=== PATIENT | female | born 1975 | race Caucasian/White ===

== ENCOUNTER → 2019-06-22 09:33 | Outpatient (BNVA) | payer BC, SELFPAY | PROVIDERS: Family Provider Registered Nurse; Visit Provider Otolaryngology | DX: H92.03 Otalgia, bilateral (principal); H91.93 Unspecified hearing loss, bilateral; J34.2 Deviated nasal septum; R26.89 Other abnormalities of gait and mobility; R42 Dizziness and giddiness | CPT/HCPCS: 99203; 99214 ==

== ENCOUNTER 2019-07-10 09:02 | Outpatient (CLI) | payer BC, SELFPAY ==
--- NOTE | 2019-07-10 09:09 | MM_ITS ---
WS: [id number] SCREENING DIGITAL MAMMOGRAM WITH CAD HISTORY: SCREENING COMPARISON: 12/02/2015, 05/23/2015 and 09/02/2014 Bilateral CC and MLO views submitted. Computer aided detection analyzed. Breast composition: There are scattered areas of fibroglandular density. There is a new asymmetry see n in the central LEFT breast on the CC projection only. At a middle depth is some very mild distortio n. Otherwise no interval change in the scattered asymmetries. LEFT breast: Spot compression views (CC ). True ML. Ultrasound to follow if abnormality persists. MM/[id number] IMPRESSION: BI-RADS: 0-Incomplete: Need additional imaging evaluation FOLLOW UP: Need Additional Imaging
== END 2019-07-10 09:03 | disposition home or self-care (01) ==
LOC: RADSHAW 09:06
PROVIDERS: Family Provider Registered Nurse; PCP Registered Nurse; Visit Provider Registered Nurse
DX: Z12.31 Encounter for screening mammogram for malignant neoplasm of breast (principal)
CPT/HCPCS: 77067

== ENCOUNTER → 2020-02-21 10:58 | Outpatient (BNVA) | payer BC, SELFPAY | PROVIDERS: Family Provider Registered Nurse; PCP Registered Nurse; Visit Provider Nurse Practitioner Family | DX: Z11.59 Encounter for screening for other viral diseases (principal) | CPT/HCPCS: 87635 ==

== ENCOUNTER → 2020-04-26 12:54 | Outpatient (BNVA) | payer BC, SELFPAY | PROVIDERS: Family Provider Registered Nurse; PCP Registered Nurse; Visit Provider Specialist | DX: R56.9 Unspecified convulsions (principal); R47.02 Dysphasia; R53.83 Other fatigue; Z87.891 Personal history of nicotine dependence | CPT/HCPCS: 95816 ==

== ENCOUNTER 2021-05-31 13:31 | Outpatient (CLI) | payer MEDICARE, MEDICAID, SELFPAY ==
--- NOTE | 2021-05-31 13:43 | MM_ITS ---
WS: [id number] DIAGNOSTIC BILATERAL DIGITAL MAMMOGRAM WITH CAD HISTORY: LT BREAST PAIN COMPARISON: 07/10/2019, 12/02/2015 and 05/23/2015 TECHNIQUE: Bilateral craniocaudad, mediolateral oblique, and mediolateral views are submitted. Spot c ompression LEFT CC. Computer aided detection utilized. Breast composition: There are scattered areas of fibroglandular density. Asymmetries are stable withi n each breast. Spot compression view in the central LEFT breast demonstrates no persistent nodules or asymmetry. The asymmetry in the central RIGHT breast is stable. IMPRESSION: MM/[place] [id number] BI-RADS: 2-Benign FOLLOW UP: 1 Year Follow-up
== END 2021-05-31 13:32 | disposition home or self-care (01) ==
LOC: RADSHAW 13:40
PROVIDERS: PCP Registered Nurse; Visit Provider Registered Nurse
DX: N64.4 Mastodynia (principal)
CPT/HCPCS: 77066

== ENCOUNTER 2022-06-15 14:27 | Outpatient (CLI) | payer MEDICARE, MEDICAID, SELFPAY ==
--- NOTE | 2022-06-15 14:41 | MM_ITS ---
WS: [id number] BILATERAL 3D TOMOSYNTHESIS DIGITAL SCREENING MAMMOGRAPHY WITH CAD CLINICAL INFORMATION: SCREENING HISTORY: Screening mammogram. LEFT breast tenderness COMPARISON: 2021 TECHNIQUE: Bilateral CC and MLO views. FINDINGS: Scattered fibroglandular densities bilaterally. No suspicious focal mass, asymmetry, calcifications, or architectural distortion. No evidence of malignancy. A few tiny incidental calcifications. Stable bilateral breast asymmetries. MM/[place] [id number] IMPRESSION: BI-RADS: 2-Benign FOLLOW UP: 1 Year Follow-up Recommend return to annual screening mammography.
== END 2022-06-15 14:28 | disposition home or self-care (01) ==
PROVIDERS: PCP Family Medicine; Visit Provider Family Medicine
DX: Z12.31 Encounter for screening mammogram for malignant neoplasm of breast (principal)
CPT/HCPCS: 77063; 77067

== ENCOUNTER → 2024-09-05 12:05 | Outpatient (BNVA) | payer MEDICARE, MEDICAID, SELFPAY | PROVIDERS: Visit Provider Emergency Medicine | DX: R07.9 Chest pain, unspecified (principal); R10.9 Unspecified abdominal pain; R10.13 Epigastric pain | CPT/HCPCS: 71046; 80053; 83690; 85025 ==

== ENCOUNTER 2024-10-11 19:35 | Emergency (ER) | payer OTHER, MEDICAID, SELFPAY ==
[2024-10-11 19:45] VITALS: BP 148/87; PULSE 88; RESP 16; TEMP 36.7; O2SAT 99; BMI 32.5
--- NOTE | 2024-10-11 20:07 | CTR_ITS ---
PROCEDURE INFORMATION: Exam: CT Abdomen And Pelvis With Contrast Exam date and time: 10/11/2024 8:44 PM Age: 49 years old Clinical indication: Abdominal pain; C/O epigastric pain TECHNIQUE: Imaging protocol: Computed tomography of the abdomen and pelvis with contrast. Radiation optimization: All CT scans at this facility use at least one of these dose optimization techniques: automated exposure control; mA and/or kV adjustment per patient size (includes targeted exams where dose is matched to clinical indication); or iterative reconstruction. Contrast material: OMNI 350; Contrast volume: 100 ml; Contrast route: INTRAVENOUS (IV); COMPARISON: CR XR chest 2V* [id number] 09/05/2024 12:11 PM RADIATION DOSE METRICS: Total DLP (mGy-cm): 898.23 FINDINGS: Lungs: Clear basilar lung parenchyma. Pleural spaces: No pleural fluid. Heart: Normal heart size. Liver: Focal fat noted along the falciform ligament. Gallbladder and biliary ducts: Tiny hypoattenuating foci in the liver are too small to fully characterize but likely cysts or bile duct hamartomas. Pancreas: No pancreatic edema or mass. Spleen: Scattered splenic calcifications. Spleen is normal in size measuring 11.1 cm in length. Adrenal glands: Normal configuration. Kidneys and ureters: Kidneys enhance symmetrically and demonstrate no evidence of mass, calculus, obstruction, or inflammation. Stomach and bowel: Postprandial stomach without visible ulcer, mass, or significant mucosal enhancement. Normal caliber small bowel with normal enhancement. Decompressed colon with mild hyperemia. Appendix: Normal appendix is in a retrocecal position. Intraperitoneal space: No free air. No significant fluid collection. Vasculature: Normal caliber arterial structures. Lymph nodes: No enlarged lymph nodes. Urinary bladder: Unremarkable as visualized. Reproductive: Physiologic appearance for age. Bones/joints: No fracture or destructive lesion. Soft tissues: Fat containing right indirect inguinal hernia. CT/CT abdomen pelvis w con* [id number] IMPRESSION: Distal colon is decompressed with mild hyperemia suggesting colitis. Exam is otherwise within normal limits.
--- NOTE | 2024-10-11 20:09 | ED_ITS ---
HPI - Abdominal Pain 2 General: Chief Complaint: Abdominal Pain Stated Complaint: upper abd pain into the chest, n/f Time Seen by Provider: 10/11/24 19:50 History of Present Illness: Patient comes in with abdominal pain. States that for the past month she has been having epigastric abdominal pain that she describes as sharp, comes and goes, last for couple hours when it occurs. States that about an hour and a half ago she started having severe epigastric abdominal pain again. States she is nauseated but has not vomited. Denies fever or diarrhea. States the pain does radiate into her back. On physical exam she has epigastric and right upper quadrant tenderness to palpation. Will check labs, treat pain with 15 mg of IV Toradol (patient does not want morphine at this time), treat nausea with 4 mg of IV Zofran, give IV fluids, check CT abdomen pelvis with IV contrast, and reassess. Associated Symptoms: Denies fever(s) Related Data Home Medications ?Medication ?Instructions ?Recorded ?Confirmed famotidine 20 mg tablet 20 mg PO BID 09/07/24 rimegepant 75 mg disintegrating mg PO 09/07/24 5 tablet (Nurtec ODT) Previous Rx's ?Medication ?Instructions ?Recorded ondansetron 4 mg disintegrating 4 mg PO Q6H PRN nausea and 09/07/24 tablet vomiting #12 tabs Allergies Allergy/AdvReac Type Severity Reaction Status Date / Time Alpha gal Allergy allergic Uncoded 09/07/24 11:53 reaction Review of Systems 2 Const: Denies: fever(s) or body aches Card: Denies: chest pain or palpitations Resp: Denies: dyspnea or productive cough PFSH ED 2 PFSH: Medical History Hearing loss Imbalance Nasal septal deformity Otalgia of both ears Family History Other Diabetes Hypertension Denies family history of Cancer Social History Smoking and tobacco/nicotine status: never used tobacco/nicotine Second hand smoke exposure: No Alcohol intake: former Physical Exam 2 Const: COMMON NORMALS: healthy appearing HENMT: COMMON NORMALS: normocephalic and atraumatic HEAD & SCALP: n ormocephalic and atraumatic Resp: COMMON NORMALS: normal respiratory effort Cardio: COMMON NORMALS: regular rate and regular rhythm RATE: regular rate RHYTHM: regular rhythm GI: OTHER: Epigastric and right upper quadrant tenderness to palpation Extremity: COMMON NORMALS: normal to inspection and full ROM Course 2 Vital Signs: Vital signs: Vital Signs Temperature 98.1 F 10/11/24 19:45 Pulse Rate 88 10/11/24 19:45 Respiratory Rate 17 10/11/24 21:40 Blood Pressure 148/87 10/11/24 19:45 Pulse Oximetry 99 10/11/24 19:45 Oxygen Delivery Me thod Room Air 10/11/24 19:45 MDM - Abdominal Pain Medical Decision Making On reassessment I talked with the patient about her test results. Her blood work is unremarkable. Her CT scan shows no acute intra-abdominal pathology. ECG is unremarkable. She states that her pain is feeling better after the Toradol. I am concerned for likely gallbladder spasms. Will give her a dose of 2 mg IV morphine, and refer her to general surgery for follow-up. We discussed symptoms that should prompt immediate return to the emergency department. Will discharge at this time with precautions to return for worsening or changing symptoms. Lab Data 10/11/24 20:16 10/11/24 20:16 Labs/Radiology: Radiology Impressions Abdomen/Pelvis CT 10/11/24 20:07 IMPRESSION: Distal colon is decompressed with mild hyperemia suggesting colitis. Exam is otherwise within normal limits. Laboratory Results WBC 7.07 10^3/uL (3.29-11.43) 10/11/24 20:16 RBC 4.33 10^6/uL (3.85-5.65) 10/11/24 20:16 Hgb 12.00 g/dL (11.27-16.99) 10/11/24 20:16 Hct 36.9 % (36-47) 10/11/24 20:16 MCV 85.2 fl (85-98) 10/11/24 20:16 MCH 27.7 pg (27-33) 10/11/24 20:16 MCHC 32.5 g/dL (30-55) 10/11/24 20:16 RDW 13.3 % (12.1-15.1) 10/11/24 20:16 Plt Count 381 10^3/cmm (157-399) 10/11/24 20:16 MPV 9.6 fL (7.4-10.4) 10/11/24 20:16 Neut % (Auto) 60.7 % 10/11/24 20:16 Lymph % (Auto) 27.0 % 10/11/24 20:16 [place] % (Auto) 6.9 % 10/11/24 20:16 Eos % (Auto) 4.0 % 10/11/24 20:16 Baso % (Auto) 1.1 % 10/11/24 20:16 Neut # (Auto) 4.29 10^3/uL (1.8-7.7) 10/11/24 20:16 Lymph # (Auto) 1.9 10^3/uL (0.8-4.8) 10/11/24 20:16 [place] # (Auto) 0.5 10^3/uL (0.2-0.9) 10/11/24 20:16 Eos # (Auto) 0.3 10^3/uL (0.0-0.8) 10/11/24 20:16 Baso # (Auto) 0.1 10^3/uL (0.0-0.1) 10/11/24 20:16 Nucleated RBC % (auto) 0 % 10/11/24 20:16 Nucleated RBCs # 0.0 /100WBC 10/11/24 20:16 Sodium 137 mmol/L (136-145) 10/11/24 20:16 Potassium 3.5 mmol/L (3.5-5.1) 10/11/24 20:16 Chloride 101 mmol/L (98-107) 10/11/24 20:16 Carbon Dioxide 22 mmol/L (22-29) 10/11/24 20:16 Anion Gap 17.5 (5-19) 10/11/24 20:16 BUN 8 mg/dL (6-20) 10/11/24 20:16 Creatinine 0.9 mg/dL (0.5-0.9) 10/11/24 20:16 GFR Calculation 66.5 mL/min (90-130) L 10/11/24 20:16 Glucose 100 mg/dL (65-115) 10/11/24 20:16 Calculated Osmolality 282 mOsm/kg (285-295) L 10/11/24 20:16 Calcium 9.2 mg/dL (8.5-10.5) 10/11/24 20:16 Total Bilirubin 0.8 mg/dL (0.15-1.2) 10/11/24 20:16 AST 14 U/L (0-32) 10/11/24 20:16 ALT 12 U/L (0-33) 10/11/24 20:16 Alkaline Phosphatase 80 U/L (35-105) 10/11/24 20:16 Troponin T Baseline < 6 ng/L (0-10) 10/11/24 20:16 Total Protein 7.4 g/dL (6.6-8.7) 10/11/24 20:16 Albumin 4.4 g/dL (3.5-5.2) 10/11/24 20:16 Globulin 3.0 g/dL (1.3-4.6) 10/11/24 20:16 Lipase 13 U/L (13-60) 10/11/24 20:16 HCG, Qual Negative (Negative) 10/11/24 20:16 All radiology interpretation(s) finalized by discharge Discharge Plan Discharge Patient Disposition: Home Clinical Impression: Abdominal pain Condition: Stable Prescriptions: No Action famotidine 20 mg tablet 20 mg PO BID Nurtec ODT 75 mg tablet,disintegrating PO ondansetron 4 mg tablet,disintegrating 4 mg PO Q6H PRN (Reason: nausea and vomiting) Qty: 12 0RF Rx Instructions: 340b please Discharge Orders: Discharge ED (Routine); Ordered 10/11/24 Ordered By: Rell Ramirez Referrals: Micheline Guerrier MD [Physician, General Surgery] Elijah Chapman DO [Primary Care Provider] Patient Instructions: Low Fat Diet (ED), Abdominal Pain (ED), Pain Management Print Language: Vietnamese Coding Level of Care Code 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
[2024-10-11 20:25] LABS: Basophils # 0.1 10^3/uL (0.0-0.1); Basophils % 1.1 %; Eosinophils # 0.3 10^3/uL (0.0-0.8); Hematocrit 36.9 % (36-47); Lymphocytes # 1.9 10^3/uL (0.8-4.8); Mean Corpuscular HGB Conc 32.5 g/dL (30-55); Mean Corpuscular Hemoglobin 27.7 pg (27-33); Mean Corpuscular Volume 85.2 fl (85-98); Mean Platelet Volume 9.6 fL (7.4-10.4); Monocytes # 0.5 10^3/uL (0.2-0.9); Monocytes % 6.9 %; Neutrophils # 4.29 10^3/uL (1.8-7.7); Neutrophils % 60.7 %; Nucleated Red Blood Cells % 0 %; Platelet Count 381 10^3/cmm (157-399); Red Blood Count 4.33 10^6/uL (3.85-5.65); Red Cell Distribution Width 13.3 % (12.1-15.1); White Blood Count 7.07 10^3/uL (3.29-11.43)
[2024-10-11 20:34] LABS: HCG, Serum Qual Negative (Negative)
[2024-10-11] MEDS: ondansetron 2 mg/ML SDV 2 mL 4 MG IVP (20:34)
[2024-10-11] MEDS: sodium chloride 0.9% 1,000 ML 999 ML IV (20:34)
[2024-10-11] MEDS: ketorolac 30 mg/mL INJ 15 MG IVP (20:34)
[2024-10-11 20:40] LABS: Alanine Aminotransferase 12 U/L (0-33); Albumin Level 4.4 g/dL (3.5-5.2); Alkaline Phosphatase 80 U/L (35-105); Anion Gap 17.5 (5-19); Aspartate Amino Transferase 14 U/L (0-32); Blood Urea Nitrogen 8 mg/dL (6-20); Calcium 9.2 mg/dL (8.5-10.5); Carbon Dioxide 22 mmol/L (22-29); Chloride 101 mmol/L (98-107); Creatinine Clr Calc Pharmacy 95.0593; Glomerular Filtration Rate 66.5 mL/min (90-130); Glucose 100 mg/dL (65-115); Lipase 13 U/L (13-60); Osmolality Calculated 282 mOsm/kg (285-295); Potassium 3.5 mmol/L (3.5-5.1); Sodium 137 mmol/L (136-145); Total Bilirubin 0.8 mg/dL (0.15-1.2); Total Protein 7.4 g/dL (6.6-8.7)
[2024-10-11] MEDS: iohexol 350 mg/mL 500 mL Btl (per mL) IV (20:44)
--- NOTE | 2024-10-11 21:33 | ECG_ITS ---
[facility] 2024-[facility]11 Pat Name: Coby Perez Department: Room: Gender: Female Commercial Announcer: : 1975 Requested By: Rell Ramirez Order Number: [id number] Garcia MD: Jasbir Cam M.D. Measurements Intervals [place] Rate: 77 P: 38 MS: 187 QRS: 39 QRSD: 97 T: 5 QT: 410 QTc: 464 Interpretive Statements SINUS RHYTHM LOW QRS VOLTAGE IN PRECORDIAL LEADS [QRS DEFLECTION < 1.0 mV IN CHEST LEADS] POSSIBLE ANTERIOR MYOCARDIAL INFARCTION , OF INDETERMINATE AGE [30 ms Q WAVE IN V3/V4, OR R < 0.2 mV IN V4] Compared to ECG 10/23/2018 14:15:43 Myocardial infarct finding now present T-wave abnormality no longer present Electronically Signed On 10-12-2024 08:52:39 CDT by Jasbir Cam M.D. [email or web address]
[2024-10-11 21:40] VITALS: RESP 17
[2024-10-11] MEDS: morphine 4 mg/mL SDV 1 mL 2 MG IVP (21:40)
[2024-10-11 22:21] LABS: Troponin(5th) Baseline < 6 ng/L (0-10)
[2024-10-11 22:38] VITALS: BP 147/94; PULSE 74; RESP 16; O2SAT 96
== END 2024-10-11 22:37 | disposition home or self-care (01) ==
PROVIDERS: Emergency Provider Emergency Medicine; PCP Family Medicine
DX: R10.9 Unspecified abdominal pain (principal)
CPT/HCPCS: 36415; 74177; 80053; 83690; 84484; 84703; 85025; 93005; 96361; 96374; 96375; 99285; J1885; J2270; J2405; J7030